=== PATIENT | male | born 1975 | race Hispanic/Latino ===

== ENCOUNTER 2022-06-08 08:22 | Inpatient (IN) | payer BC ==
[2022-06-08 20:46] VITALS: BMI 40.1
[2022-06-08] MEDS ORDERED: Insulin Glargine 30 UNITS/0.3 ML VIAL SC SCH (21:45)
[2022-06-08] MEDS ORDERED: metFORMIN 500 MG TAB PO SCH (21:45)
[2022-06-08] MEDS ORDERED: Dextrose 50% Abboject 50 ML SYRINGE SLOW IVP PRN (21:46)
[2022-06-08] MEDS ORDERED: Dextrose 5% in Water 1,000 ML IV PRN (21:46)
[2022-06-08] MEDS ORDERED: Senokot S 8.6-50 MG TAB PO PRN (21:46)
[2022-06-08] MEDS ORDERED: Acetaminophen 325 MG TAB PO PRN (21:46)
[2022-06-08] MEDS ORDERED: Ondansetron ODT 4 MG TAB PO PRN (21:46)
[2022-06-08] MEDS ORDERED: Atorvastatin Calcium 10 MG TAB PO SCH (22:00)
[2022-06-08] MEDS ORDERED: Cephalexin 250 MG CAP PO SCH (22:00)
[2022-06-08] MEDS: HumaLOG 300 UNITS/3 ML VIAL SC PRN (22:25)
[2022-06-09] MEDS: HumaLOG 300 UNITS/3 ML VIAL SC PRN ×5 (05:38→22:35)
[2022-06-09 06:12] LABS: Anion Gap 15 mmol/L (10-20); BUN (Urea Nitrogen) 19 mg/dL (8.9-20.6); Calc. Creatinine Clearance 186 mL/min (70-130); Calcium 8.7 mg/dL (7.8-10.44); Carbon Dioxide 20 mmol/L (22-29); Chloride 105 mmol/L (98-107); Estimated GFR 107; Glucose 317 mg/dL (70-105); Sodium 136 mmol/L (136-145)
[2022-06-09 06:26] LABS: Hemoglobin 10.5 g/dL (14.0-18.0); Mean Corpuscular HGB CONC 34.3 g/dL (32.0-36.0); Mean Corpuscular Hemoglobin 28.8 pg (27.0-31.0); Mean Corpuscular Volume 83.9 fl (78.0-98.0); Mean Platelet Volume 15.2 fL (7.4-10.4); Platelet Count 2 10x3/uL (130-400); RBC Distribution Width 12.7 % (11.5-14.5); Red Blood Cell (RBC) Count 3.67 mill/uL (4.70-6.10); White Blood Cell (WBC) Count 11.6 10x3/uL (4.8-10.8)
[2022-06-09 06:29] LABS: Band 7 % (5-11); Hypochromia SLIGHT = 6-15 cells (100X) (0-5/hpf); Lymphocytes 31 % (21-51); MDiff Complete? YES; Monocytes 7 % (0-10); Neutrophil 55 % (42-75); Platelet Morphology Comment Appears Decreased
[2022-06-09] MEDS: Atorvastatin Calcium 10 MG TAB PO SCH (08:58)
[2022-06-09] MEDS: Famotidine 20 MG TAB PO SCH ×2 (08:59→21:44)
[2022-06-09] MEDS: Lisinopril 2.5 MG TAB PO SCH (08:59)
[2022-06-09] MEDS: Cephalexin 250 MG CAP PO SCH ×2 (08:59→21:43)
[2022-06-09] MEDS ORDERED: OCTAGAM 10% (10 GM/100 ML VIAL) IVPB SCH (09:30)
[2022-06-09] MEDS: metFORMIN 500 MG TAB PO SCH ×2 (10:32→16:50)
[2022-06-09] MEDS: Dexamethasone 10 MG/ML VIAL SLOW IVP SCH (10:33)
[2022-06-09] MEDS ORDERED: IMMUNE GLOBULIN IVPB SCH (12:00)
[2022-06-09] MEDS ORDERED: PRIVIGEN IVPB SCH (12:00)
[2022-06-09] MEDS ORDERED: ADMIXTURE FEE IVPB SCH ×2 (12:00)
[2022-06-09] MEDS ORDERED: Privigen 80 GM, Privigen 10 GM in Admixture Fee 1 EACH IVPB SCH (12:45)
[2022-06-09] MEDS ORDERED: Insulin Glargine 30 UNITS/0.3 ML VIAL SC SCH (21:00)
[2022-06-10 05:42] LABS: #Eosinphils 0.1 thou/uL (0.0-0.7); #Lymphocytes 1.8 thou/uL (1.20-3.40); #Monocytes 0.5 thou/uL (0.11-0.59); #Neutrophils 9.4 thou/uL (1.40-6.50); %Eosinophils 0.8 % (0.0-10.0); %Lymphocytes 15.2 % (21.0-51.0); %Monocytes 4.1 % (0.0-10.0); %Neutrophils 79.9 % (42.0-75.0); Mean Corpuscular HGB CONC 34.3 g/dL (32.0-36.0); Mean Corpuscular Hemoglobin 28.9 pg (27.0-31.0); Mean Corpuscular Volume 84.3 fl (78.0-98.0); Mean Platelet Volume 10.9 fL (7.4-10.4); Platelet Count 56 10x3/uL (130-400); RBC Distribution Width 12.8 % (11.5-14.5); Red Blood Cell (RBC) Count 3.81 mill/uL (4.70-6.10); White Blood Cell (WBC) Count 11.7 10x3/uL (4.8-10.8)
[2022-06-10] MEDS: HumaLOG 300 UNITS/3 ML VIAL SC PRN ×3 (05:51→16:09)
[2022-06-10 05:56] LABS: Anion Gap 16 mmol/L (10-20); BUN (Urea Nitrogen) 23 mg/dL (8.9-20.6); Calc. Creatinine Clearance 161 mL/min (70-130); Calcium 9.3 mg/dL (7.8-10.44); Carbon Dioxide 19 mmol/L (22-29); Chloride 104 mmol/L (98-107); Estimated GFR 90; Glucose 338 mg/dL (70-105); Potassium 4.1 mmol/L (3.5-5.1); Sodium 135 mmol/L (136-145)
[2022-06-10] MEDS: Famotidine 20 MG TAB PO SCH (09:32)
[2022-06-10] MEDS: metFORMIN 500 MG TAB PO SCH ×2 (09:35→18:22)
[2022-06-10] MEDS: Dexamethasone 10 MG/ML VIAL SLOW IVP SCH (09:35)
[2022-06-10] MEDS: Cephalexin 250 MG CAP PO SCH ×2 (09:35→21:14)
[2022-06-10] MEDS: Atorvastatin Calcium 10 MG TAB PO SCH (09:35)
[2022-06-10] MEDS: Lisinopril 2.5 MG TAB PO SCH (09:36)
[2022-06-10] MEDS ORDERED: HumaLOG 300 UNITS/3 ML VIAL SC PRN (12:56)
[2022-06-10] MEDS ORDERED: Dextrose 50% Abboject 50 ML SYRINGE SLOW IVP PRN ×2 (12:56)
[2022-06-10] MEDS ORDERED: Dextrose 5% in Water 1,000 ML IV PRN (12:56)
[2022-06-10] MEDS ORDERED: Insulin Glargine 30 UNITS/0.3 ML VIAL SC SCH (21:00)
[2022-06-10] MEDS ORDERED: Doxylamine 25 MG TAB PO PRN (21:22)
[2022-06-10] MEDS ORDERED: diphenhydrAMINE 25 MG CAP PO SCH (22:30)
[2022-06-11 05:35] LABS: #Eosinphils 0.1 thou/uL (0.0-0.7); #Lymphocytes 2.3 thou/uL (1.20-3.40); #Monocytes 0.7 thou/uL (0.11-0.59); #Neutrophils 10.5 thou/uL (1.40-6.50); %Basophils 0.1 % (0.0-1.0); %Eosinophils 0.5 % (0.0-10.0); %Lymphocytes 17.1 % (21.0-51.0); %Monocytes 5.3 % (0.0-10.0); %Neutrophils 77.1 % (42.0-75.0); Hemoglobin 11.3 g/dL (14.0-18.0); Mean Corpuscular HGB CONC 33.7 g/dL (32.0-36.0); Mean Corpuscular Hemoglobin 28.3 pg (27.0-31.0); Mean Corpuscular Volume 84.1 fl (78.0-98.0); Mean Platelet Volume 10.2 fL (7.4-10.4); Platelet Count 129 10x3/uL (130-400); RBC Distribution Width 12.8 % (11.5-14.5); White Blood Cell (WBC) Count 13.6 10x3/uL (4.8-10.8)
[2022-06-11 05:58] LABS: Anion Gap 16 mmol/L (10-20); BUN (Urea Nitrogen) 20 mg/dL (8.9-20.6); Calc. Creatinine Clearance 173 mL/min (70-130); Calcium 8.8 mg/dL (7.8-10.44); Carbon Dioxide 18 mmol/L (22-29); Chloride 101 mmol/L (98-107); Estimated GFR 98; Glucose 325 mg/dL (70-105); Potassium 4.5 mmol/L (3.5-5.1); Sodium 130 mmol/L (136-145)
[2022-06-11] MEDS: HumaLOG 300 UNITS/3 ML VIAL SC PRN ×2 (06:01→11:42)
[2022-06-11] MEDS: Atorvastatin Calcium 10 MG TAB PO SCH (08:42)
[2022-06-11] MEDS: Lisinopril 2.5 MG TAB PO SCH (08:42)
[2022-06-11] MEDS: metFORMIN 500 MG TAB PO SCH (08:42)
[2022-06-11] MEDS: Cephalexin 250 MG CAP PO SCH (08:42)
[2022-06-11] MEDS: Dexamethasone 10 MG/ML VIAL SLOW IVP SCH (08:45)
[2022-06-11 14:29] VITALS: BP 113/75; TEMP 97.7
== END 2022-06-11 14:42 | disposition home or self-care (01) | DRG 813 ==
LOC: INTOOBSV 19:27 → MSONC 19:27 → OBSVTOIN 06-09 12:41
PROVIDERS: ADMIT Student in an Organized Health Care Education/Training Program; ATTEND Internal Medicine
PROC: 30233R1 Transfusion of Nonautologous Platelets into Peripheral Vein, Percutaneous Approach (ICD-10-PCS; principal; 2022-06-09)
DX: D69.3 Immune thrombocytopenic purpura (principal); I10 Essential (primary) hypertension; E11.9 Type 2 diabetes mellitus without complications; E78.5 Hyperlipidemia, unspecified; J02.0 Streptococcal pharyngitis; Z79.84 Long term (current) use of oral hypoglycemic drugs; Z79.4 Long term (current) use of insulin; Z79.899 Other long term (current) drug therapy; Z98.890 Other specified postprocedural states
CPT/HCPCS: 36415; 36416; 36430; 80048; 85025; 86850; 86900; 86901; 96374; G0378; J1100; J1459; J1644; J1815; J1940; P9035; P9047